=== PATIENT | male | born 1950 ===

== ENCOUNTER 2018-05-31 10:19 | Outpatient (REF) | payer MEDICARE, SELFPAY ==
[2018-05-31 13:55] LABS: Bilirubin Moderate (Negative); Blood Negative (Negative); Clarity Clear; Glucose 100 mg/dL (Negative); Ketones Trace mg/dL (Negative); Leukocyte Esterase Negative (Negative); Nitrite Negative (Negative); Specific Gravity >= 1.030 (1.005-1.025); pH 5.5 (5-8)
[2018-05-31 14:26] LABS: Bacteria Few HPF (Negative); C & S Indicated? No; Casts 0-2 Hyaline LPF (Negative); Crystals Negative HPF (Negative); Epithelial Cells Moderate HPF (Negative); Mucus Trace (Negative); RBC Negative (0-2); WBC 0-2 HPF (0-5)
[2018-05-31 21:16] LABS: HCT 36.2 % (40.0-50.0); HGB 11.9 g/dL (13.5-17.5); Mean Corp. HGB Concentration 32.9 g/dL (32.0-36.0); Mean Corpuscular Hemoglobin 30.4 pg (27.0-33.0); Mean Corpuscular Volume 92.6 fL (80-95); Mean Platelet Volume 10.9 fL (8.0-11.0); Platelet Count 304 x1000/uL (130-400); RBC 3.91 m/cumm (4.50-6.00); RBC Distribution Width 16.9 % (11.8-14.1); White Blood Cell Count 6.19 k/cumm (4.4-10.8)
[2018-05-31 21:32] LABS: ALT 208 U/L (12-78); AST 148 U/L (15-37); Alkaline Phosphatase 665 U/L (46-116); Anion Gap 9.6 mmol/L (3-11); BUN 22 mg/dL (7-18); Bilirubin, Total 2.3 mg/dL (0.2-1.0); CO2 25.4 mmol/L (21.0-32.0); CREATININE 1.01 mg/dL (0.70-1.30); Calcium 8.8 mg/dL (8.5-10.1); Chloride 99 mmol/L (98-107); Glucose 249 mg/dL (70-100); Sodium 134 mmol/L (136-145); Total Protein 7.3 g/dL (6.4-8.2)
[2018-05-31 21:44] LABS: Potassium 6.2 mmol/L (3.5-5.1)
[2018-06-01 09:20] LABS: Absolute Basophil Count 0.07 k/cumm (0.0-0.2); Absolute Eosinophil Count 0.18 k/cumm (0.0-0.7); Absolute Lymphocyte Count 0.93 k/cumm (1.2-3.4); Absolute Monocyte Count 0.77 k/cumm (0.11-0.7); Absolute Neutrophil Count 4.17 k/cumm (1.2-6.7); Basophils % 1.1; Eosinophils % 2.9; Lymphocytes % 15.1; Monocytes % 12.5; Neutrophils % 67.4
[2018-06-01 09:21] LABS: Abs Immature Grans 0.06 k/cumm (0.0-0.09)
[2018-06-01 10:17] LABS: Diff Comment Diff Reviewed; Poikilocytes 1+; Polychromasia Present
== END 2018-05-31 10:39 ==
LOC: NCHCN 10:19
PROVIDERS: PCP Family Medicine; Visit Provider Nurse Practitioner Family
DX: R30.0 Dysuria (principal)
CPT/HCPCS: 80053; 85027; 81003; 81015; 85007; 85025

== ENCOUNTER 2019-11-22 08:58 | Outpatient (REF) | payer MEDICARE, SELFPAY ==
[2019-11-22 21:03] LABS: Hemoglobin A1C 7.1 % (3.8-5.6)
[2019-11-22 21:12] LABS: ALT 19 U/L (16-63); AST 24 U/L (15-37); Albumin 3.4 g/dL (3.4-5.0); Alkaline Phosphatase 67 U/L (46-116); Anion Gap 10.8 mmol/L (3-11); BUN 18 mg/dL (7-18); Bilirubin, Total 0.3 mg/dL (0.2-1.0); CO2 22.2 mmol/L (21.0-32.0); CREATININE 1.11 mg/dL (0.70-1.30); Chloride 104 mmol/L (98-107); Glucose 105 mg/dL (74-106); Potassium 5.9 mmol/L (3.5-5.1); Sodium 137 mmol/L (136-145); Total Protein 6.9 g/dL (6.4-8.2)
== END 2019-11-22 09:18 ==
LOC: NCHCN 08:58
PROVIDERS: PCP Family Medicine; Visit Provider Family Medicine
DX: E11.9 Type 2 diabetes mellitus without complications (principal); R94.5 Abnormal results of liver function studies
CPT/HCPCS: 80053; 83036

== ENCOUNTER 2020-05-13 16:25 | Outpatient (REF) | payer MEDICARE, SELFPAY ==
[2020-05-13 13:28] LABS: HCT 36.4 % (40.0-50.0); HGB 11.2 g/dL (13.5-17.5); MCH 30.9 pg (27.0-33.0); MCHC 30.8 % (32.0-36.0); MCV 100.6 fL (80-95); MPV 10.1 fL (8.0-11.0); Platelet Count 291 10^3/uL (130-400); RBC 3.62 10^6/uL (4.36-5.78); RDW 14.3 % (11.8-14.1)
[2020-05-13 13:44] LABS: ALT 23 U/L (16-63); AST 18 U/L (15-37); Albumin 3.6 g/dL (3.4-5.0); Alkaline Phosphatase 81 U/L (46-116); Anion Gap 6.9 mmol/L (3-11); BUN 20 mg/dL (7-18); Bilirubin, Total 0.3 mg/dL (0.2-1.0); CO2 26.1 mmol/L (21.0-32.0); CREATININE 1.1 mg/dL (0.70-1.30); Calculated LDL 75 mg/dL (<100); Chloride 104 mmol/L (98-107); Cholesterol 137 mg/dL (<200); Glucose 155 mg/dL (74-106); HDL Cholesterol 42 mg/dL (40-60); Potassium 5.5 mmol/L (3.5-5.1); Sodium 137 mmol/L (136-145); Total Protein 7.2 g/dL (6.4-8.2); Triglyceride 100 mg/dL (<150)
[2020-05-13 14:07] LABS: Vitamin D 25 Total 8.7 ng/ml (30-100)
[2020-05-13 14:27] LABS: COMMENT (LAB VIEW ONLY) 139.96 mg/dL; Microalb ug/mg Crea 335.5 ug/mg Cr
== END 2020-05-13 16:26 | disposition home or self-care (01) ==
LOC: NCHCN 16:25
PROVIDERS: PCP Family Medicine; Visit Provider Family Medicine
DX: I10 Essential (primary) hypertension (principal); E55.9 Vitamin D deficiency, unspecified; E87.5 Hyperkalemia
CPT/HCPCS: 80053; 80061; 82306; 85027; 82043; 82570

== ENCOUNTER 2021-03-03 19:13 | Outpatient (REF) | payer MEDICARE, SELFPAY ==
[2021-03-03 21:39] LABS: Abs Immature Grans 0.04 10^3/uL (0.0-0.06); Absolute Basophil Count 0.03 10^3/uL (0.0-0.2); Absolute Eosinophil Count 0.01 10^3/uL (0.0-0.7); Absolute Lymphocyte Count 0.62 10^3/uL (1.2-3.4); Absolute Monocyte Count 1.05 10^3/uL (0.1-0.8); Absolute Neutrophil Count 12.29 10^3/uL (1.2-6.7); Basophils % 0.2; Eosinophils % 0.1; HCT 32.9 % (40.0-50.0); HGB 10.4 g/dL (13.5-17.5); Immature Grans % 0.3; Lymphocytes % 4.4; MCH 29.6 pg (27.0-33.0); MCHC 31.6 % (32.0-36.0); MCV 93.7 fL (80-95); MPV 9.8 fL (8.0-11.0); Monocytes % 7.5; Neutrophils % 87.5; Nucleated RBC 0 %; Platelet Count 342 10^3/uL (130-400); RBC 3.51 10^6/uL (4.36-5.78); RDW 14.4 % (11.8-14.1); RDW-SD 48.8 fL; WBC 14.05 10^3/uL (4.4-10.8)
[2021-03-03 21:51] LABS: ALT 19 U/L (16-63); AST 30 U/L (15-37); Alkaline Phosphatase 109 U/L (46-116); Anion Gap 9.6 mmol/L (3-11); BUN 23 mg/dL (7-18); Bilirubin, Total 0.4 mg/dL (0.2-1.0); CO2 28.4 mmol/L (21.0-32.0); CREATININE 1.2 mg/dL (0.70-1.30); Calcium 7.8 mg/dL (8.5-10.1); Chloride 101 mmol/L (98-107); Estimated GFR 59.68 (mL/min/1.73m2); Glucose 101 mg/dL (74-106); Lipase 10 U/L (73-393); Potassium 4.6 mmol/L (3.5-5.1); Sodium 139 mmol/L (136-145); Total Protein 6.9 g/dL (6.4-8.2)
== END 2021-03-03 19:14 | disposition home or self-care (01) ==
LOC: NCHCN 19:13
PROVIDERS: PCP Family Medicine; Visit Provider Family Medicine
DX: R10.9 Unspecified abdominal pain (principal); C15.9 Malignant neoplasm of esophagus, unspecified; R07.89 Other chest pain
CPT/HCPCS: 80053; 83690; 85025

== ENCOUNTER 2021-03-25 09:53 | Outpatient (REF) | payer MEDICARE, SELFPAY ==
[2021-03-25 14:35] LABS: Abs Immature Grans 0.02 10^3/uL (0.0-0.06); Absolute Basophil Count 0.11 10^3/uL (0.0-0.2); Absolute Eosinophil Count 0.18 10^3/uL (0.0-0.7); Absolute Lymphocyte Count 1.14 10^3/uL (1.2-3.4); Absolute Monocyte Count 0.72 10^3/uL (0.1-0.8); Absolute Neutrophil Count 5.36 10^3/uL (1.2-6.7); Basophils % 1.5; Eosinophils % 2.4; HCT 35.6 % (40.0-50.0); Immature Grans % 0.3; Lymphocytes % 15.1; MCH 29.2 pg (27.0-33.0); MCHC 30.9 % (32.0-36.0); MCV 94.4 fL (80-95); MPV 9.7 fL (8.0-11.0); Monocytes % 9.6; Neutrophils % 71.1; Nucleated RBC 0 %; Platelet Count 302 10^3/uL (130-400); RBC 3.77 10^6/uL (4.36-5.78); RDW 15.5 % (11.8-14.1); RDW-SD 53.4 fL; WBC 7.53 10^3/uL (4.4-10.8)
[2021-03-25 14:45] LABS: ALT 17 U/L (16-63); AST 15 U/L (15-37); Albumin 3.5 g/dL (3.4-5.0); Alkaline Phosphatase 94 U/L (46-116); BUN 30 mg/dL (7-18); Bilirubin, Total 0.2 mg/dL (0.2-1.0); CREATININE 1.3 mg/dL (0.70-1.30); Calcium 8.8 mg/dL (8.5-10.1); Chloride 105 mmol/L (98-107); Estimated GFR 54.42 (mL/min/1.73m2); Glucose 82 mg/dL (74-106); Lipase 40 U/L (73-393); Sodium 135 mmol/L (136-145); Total Protein 7.5 g/dL (6.4-8.2)
[2021-03-25 14:55] LABS: Potassium 6.5 mmol/L (3.5-5.1)
== END 2021-03-25 09:54 | disposition home or self-care (01) ==
LOC: NCHCN 09:53
PROVIDERS: PCP Family Medicine; Visit Provider Family Medicine
DX: R10.9 Unspecified abdominal pain (principal); K57.30 Diverticulosis of large intestine without perforation or abscess without bleeding
CPT/HCPCS: 80053; 83690; 85025